=== PATIENT | male | born 1985 | race Two or more races ===

== ENCOUNTER 2022-08-21 19:50 | Emergency (ER) | payer OTHER ==
[2022-08-21 20:04] VITALS: BP 137/82; PULSE 97; RESP 18; TEMP 98.4; BMI 29.2
[2022-08-21] MEDS ORDERED: METOCLOPRAMIDE HCL INJECTION 10 MG/2 ML VIAL IVPB ONE (22:00)
[2022-08-21] MEDS ORDERED: KETOROLAC TROMETHAMINE 15 MG/ML VIAL IVPUSH ONE (22:00)
[2022-08-21] MEDS ORDERED: SODIUM CHLORIDE 0.9% 500 ML INFUS.BAG IV ONE (22:00)
[2022-08-21] MEDS ORDERED: METOCLOPRAMIDE HCL INJECTION 10 MG/2 ML VIAL ONE (23:53)
[2022-08-21] MEDS ORDERED: KETOROLAC TROMETHAMINE 15 MG/ML VIAL ONE (23:54)
== END 2022-08-22 04:11 | disposition home or self-care (01) ==
LOC: JER 19:50
PROC: 3E0333Z Introduction of Anti-inflammatory into Peripheral Vein, Percutaneous Approach (ICD-10-PCS; principal; 2022-08-21)
PROC: 3E033GC Introduction of Other Therapeutic Substance into Peripheral Vein, Percutaneous Approach (ICD-10-PCS; 2022-08-21)
DX: R51.9 Headache, unspecified (principal)
CPT/HCPCS: 70450-TC; 70480-TC; 70486-TC; 96374; 96375; 99285-25